=== PATIENT | female | born 1965 | race Caucasian/White ===

== ENCOUNTER → 2016-04-30 | Outpatient (CLI) | payer BC ==
[~2016-04-30] MED LIST: IBUP-1050 PO; MELATAB2 PO; MULT-506 PO; ONDA4TAB46 PO; TEMO1CAP4 PO
--- NOTE | 2016-04-30 14:16 | Discharge Instructions ---
Discharge Instructions Procedure Procedure Date: Apr 30, 2016. Reason for visit: Right Mass. Discharge Discharge Date: Apr 30, 2016. Discharge Diagnosis: status post breast biopsy Instructions Activity Recommendations: Additional Limitations (see below) Return to School/Work: no limitations Recommended Home Diet: No Limitations Provider Instructions: ACTIVITY RECOMMENDATIONS: * No lifting, pushing, pulling or exercising the affected side for three days. RETURN TO SCHOOL/WORK: * You may return to work/school after the procedure, but do not perform any strenuous activities for 24 to 48 hours. MEDICATIONS: * Tylenol (two 325 mg) every four to six hours if needed for mild pain (if not allergic to Tylenol). DIET: * Resume previous diet. SPECIAL CARE INSTRUCTIONS: * Keep biopsy site dry for 24 hours. May shower after 24 hours, but do not soak (bathe) incision. * May remove Tegaderm (plastic patch) tomorrow AFTER showering. * Leave the steri-strips on for one week. Allow the steri-strips to fall off by themselves. If not off after one week, you may remove them. You may place a Bandaid crosswise over the strips, if desired. * Apply ice 10 minutes on and 10 minutes off as needed. * Wear a bra at bedtime to sleep more comfortably for 2-3 days. * Your referring physician should have the results after approximately 5 to 7 business days. * Call for unusual bleeding, fever, drainage, etc or if you have any questions call during normal business hours or after hours call Dr Reyes, . FOLLOW UP VISIT: Follow-up with Referring Physician as scheduled. Allergies Coded Allergies: No Known Allergies (Unverified , 07/22/15) Ham Tubbs Recommendations: Call your doctor if: * Temperature above 101 degrees * Pain not relieved by pain medicine ordered * There is increased drainage or redness from any incision * You have any unanswered questions or concerns. Your Doctors Instructions noted above were prepared by provider Priya Reyes. Patient Signature Section: Patient Instructions Signature Page Shavonne George Patient (or Guardian) Signature/Date: I have read and understand the instructions given to me by my caregivers. Caregiver/RN/Doctor Signature/Date: The above-named patient and/or guardian has received patient instructions on this date. + Original Patient Signature Page (only) stays with chart. Please make copy for patient.
--- NOTE | 2016-04-30 15:46 | MAMMOGRAPHY REPORT ---
UNILATERAL RIGHT DIGITAL DIAGNOSTIC MAMMOGRAM: 04/30/2016 CLINICAL HISTORY: Status post ultrasound-guided biopsy of the right 3:00 breast mass. TECHNIQUE: Postprocedural right CC and ML views were obtained. COMPARISON: Comparison is made to exams dated: 04/25/2016 mammogram, 10/19/2015 ultrasound, 05/30/2015 mammogram - [facility], and 08/01/2013 mammogram. BREAST COMPOSITION: The tissue of the right breast is heterogeneously dense, which may obscure smal l masses. FINDINGS: A new biopsy marker clip is seen at the site of the biopsied mass in the right 3:00 breas t. No significant postbiopsy hematoma is seen. IMPRESSION: POST PROCEDURE IMAGING FOR MARKER PLACEMENT New biopsy marker clip status post ultrasound guided biopsy of the right 3:00 breast mass. Patholog y results are pending. Approximately 10% of breast cancers are not detected with mammography. A negative mammographic repor t should not delay biopsy if a clinically suggestive mass is present. Priya Reyes M.D. ah/:04/30/2016 14:25:25 Records Management Engineer: Jodie Beth, [facility] BI-RADS Code: Post Procedure Imaging For Marker Placement
--- NOTE | 2016-04-30 15:46 | MAMMOGRAPHY REPORT ---
ULTRASOUND GUIDED BIOPSY RIGHT BREAST: 04/30/2016 CLINICAL HISTORY: Right 3:00 breast mass. PATIENT CONSENT: The procedure, risks and benefits were discussed with the patient and informed writ ten consent was obtained. A timeout was performed immediately prior to the procedure. PROCEDURE DESCRIPTION: With ultrasound guidance, aseptic technique, and lidocaine as the local anest hetic (1% lidocaine to anesthetize the skin and 1% lidocaine with epinephrine to anesthetize the hernan per tissues), the mass of concern in the right 3:00 breast was sampled 3 times with a 14-gauge Achie ve biopsy needle. Immediately thereafter, with ultrasound guidance, aseptic technique, and lidocai ne as the local anesthetic, a metallic localizer clip was placed at the biopsy site. Direct pressur e was applied to the site immediately post procedure and hemostasis was achieved. Postprocedure uni lateral mammograms were performed to confirm placement of the clip in the expected location of the b reast mass. The patient tolerated the procedure without complication. She was given wound care ins tructions. The specimens were sent to pathology for analysis. COMPARISON: Comparison is made to exams dated: 04/25/2016 ultrasound, 04/25/2016 mammogram, 10/19/19 16 ultrasound, 10/19/2015 mammogram, 05/30/2015 mammogram - [facility], and 08/01/2013 mammogram. IMPRESSION: ULTRASOUND GUIDED BIOPSY Ultrasound-guided core needle biopsy of the right 3 o'clock breast mass, with clip placement. The p atient will receive pathology results from her referring physician. Priya Reyes M.D. ah/:04/30/2016 14:18:57 Science Manager: Jodie Beth, [facility]
== END | disposition home or self-care (01) ==
LOC: C.MAMM 13:36
PROVIDERS: ATTEND Obstetrics & Gynecology
DX: N63 Unspecified lump in breast (principal); N60.11 Diffuse cystic mastopathy of right breast

== ENCOUNTER → 2016-05-15 | Outpatient (CLI) | payer BC ==
[2016-05-15 13:50] VITALS: BP 102/66; PULSE 72; TEMP 36.7; O2SAT 100
--- NOTE | 2016-05-15 15:12 | Radiation Oncology Follow-Up ---
Radiation Oncology Follow-Up Date of Visit May 15, 2016. (Es Momin PA-C) Reason For Visit 6 month follow-up (Es Momin PA-C) Radiation Completion Date 10/09/15 (Es Momin PA-C) Diagnosis (1) Glioblastoma Status: Resolved Onset Date: 07/31/2015 Location: right temporal lobe Histology Subtype: GBM Stage: IV Permanent Comment: DIAGNOSIS: Brain, right temporal lobe, glioblastoma, WHO Grade IV TREATMENT: 1. Craniotomy - gross total resection - 07/31/2015 2. Status post completion of radiation therapy 10/09/2015 received 6000 cGy radiation combined with Temodar. 3. Maintenance Temodar 4. TTS-Novocure 18 hours per day Last Edited By: Es Momin on May 15, 2016 15:05 (Es Momin PA-C) History of Present Illness Ms. George is a 50-year-old female who recently presented with neurologic changes including short-term memory loss, confusion and difficulty typing. She also noted that she was favoring her left side of her body and she was also highly emotional. Additionally, she was also having some frontal headaches. She did have an MRI of the brain ordered by her primary care physician on 2015 which did show a 6 cm mass in the right temporal lobe. The mass was ring- enhancing with a cystic lesion and there was significant vasogenic edema with a right to left midline shift. She did also have an MRA of the brain which was negative. She was then transferred to [facility] for further care. She was seen by Dr. Gomez who recommended a right frontotemporal craniotomy for resection of the tumor. The patient underwent craniotomy on 07/31/2015 and successfully underwent a gross total resection as per the operative note. The pathology revealed a glioblastoma, WHO grade 4. The patient did have a postoperative MRI of the brain which was completed on 08/2015 which revealed a decrease in the size of the tumor now measuring 4.8 cm with no masslike enhancement. The patient has been seen by Dr. Hayden as well was discussed the role of concurrent chemotherapy and radiation therapy in the adjuvant setting. We are now seeing the patient in consultation to discuss the role of radiation therapy. She underwent radiation therapy with IMRT which was completed on 10/09/2015. She received 6000 cGy. Radiation was given concomitantly with Temodar. (Es Momin PA-C) Interim History She's been doing well over the past 6 months. She has not developed any new neurologic symptoms. She was recently seen by Dr. Hayden 05/05/2016 at [facility]. She had an MRI evaluation prior to that visit. 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 When this occurs she takes acyclovir. She does need a refill and will call Dr. Hayden for refill of the medication. We're pleased with the outcome of the recheck MRI. There's no signs of recurrence. She is now being treated with Novocure. They did state that if the transducers are placed near the area of surgery this will cause warmth of the head. She denies discomfort with this therapy. (Es Momin PA-C) Allergies Coded Allergies: No Known Allergies (Unverified , 07/22/15) Home Medications Scheduled Melatonin (Melatonin Maximum Strengt), 3 MG PO HS Multivitamin (Multivitamin), 1 TAB PO DAILY Temozolomide (Temodar), 240 MG PO DAILY Scheduled PRN Ibuprofen (Advil), 200 MG PO Q4 PRN for Pain Ondansetron Hcl (Zofran), 4 MG PO Q6H PRN for Nausea Review of Systems Gastrointestinal: Symptoms: WNL GI Comments: Occ constipation Oral: Symptoms: No Problems Respiratory: Symptoms: WNL Urinary: Symptoms: WNL Skin: Symptoms: No Problems Other Skin Symptoms: Admits to itchiness over skin of scalp/forehead; (Es Momin PA-C) Physical Exam Vital Signs Date Time Temp Pulse Resp B/P Pulse Ox O2 Delivery O2 Flow Rate FiO2 05/15/16 13:50 36.7 72 16 102/66 100 Fatigue: None General Appearance: no apparent distress Eyes: PERRL, EOMI, + pertinent finding (injected conjunctiva) ENT: normal ENT inspection Neck: no adenopathy, thyroid normal Respiratory/Chest: lungs clear, no respiratory distress, no accessory muscle use Cardiovascular: regular rate, rhythm, no gallop, no murmur Extremities: no pedal edema Neurologic/Psychiatric: pediatric acute care unit nurse II-XII nml as tested, no motor/sensory deficits, alert, normal mood/affect Skin: warm/dry Lymphatic: no adenopathy (Es Momin PA-C) Laboratory Studies Test 03/03/16 08:32 03/03/16 08:38 04/01/16 10:48 04/01/16 10:49 Thyroid Stimulating Hormone (TSH) 2.310 uIu/ml (0.300-4.500) 1.480 uIu/ml (0.300-4.500) Miscellaneous Test REPORT REPORT White Blood Count 3.95 K/uL (4.8-10.8) Red Blood Count 3.95 M/uL (4.2-5.4) Hemoglobin 12.7 g/dL (12.0-16.0) Hematocrit 37.0 % (37-47) Mean Corpuscular Volume 93.7 fL (80-100) Mean Corpuscular Hemoglobin 32.2 pg (25-34) Mean Corpuscular Hemoglobin Concent 34.3 g/dl (32-36) Platelet Count 145 K/uL (130-400) Mean Platelet Volume 10.1 fL (7.4-10.4) Neutrophils (%) (Auto) 66.6 % Lymphocytes (%) (Auto) 21.0 % Monocytes (%) (Auto) 10.1 % Eosinophils (%) (Auto) 1.5 % Basophils (%) (Auto) 0.5 % Neutrophils # (Auto) 2.63 K/uL (1.4-6.5) Lymphocytes # (Auto) 0.83 K/uL (1.2-3.4) Monocytes # (Auto) 0.40 K/uL (0.11-0.59) Eosinophils # (Auto) 0.06 K/uL (0-0.5) Basophils # (Auto) 0.02 K/uL (0-0.2) RDW Standard Deviation 44.6 fL (36.4-46.3) RDW Coefficient of Variation 13.0 % (11.5-14.5) Immature Granulocyte % (Auto) 0.3 % Immature Granulocyte # (Auto) 0.01 K/uL (0.00-0.02) Prothrombin Time 10.6 SECONDS (9.0-12.0) Prothrombin Time INR 1.0 (0.9-1.1) PTT 28.4 SECONDS (21.0-31.0) Partial Thromboplastin Ratio 1.1 Estimated Average Glucose 97 mg/dl Hemoglobin A1c 5.0 % (4.5-5.6) Triglycerides Level 63 mg/dl (0-150) Cholesterol Level 176 mg/dl (0-200) HDL Cholesterol 90 mg/dl LDL Cholesterol, Calculated 73 mg/dl VLDL Cholesterol, Calculated 13 mg/dl Cholesterol/HDL Ratio 2.0 Homocysteine 8.4 UMOL/L (<10.4) Free Thyroxine 1.36 ng/dl (0.80-1.60) Prolactin 6.35 ng/mL Human Growth Hormone 0.2 ng/mL (<=7.1) Insulin-like Growth Factor I 160 ng/mL (50-317) Insulin-like GF I Z-Score (Male) (()) Insulin-like GF I Z-Score (Female) 0.3 SD (-2.0 - +2.0) Test 05/05/16 08:18 White Blood Count 3.85 K/uL (4.8-10.8) Red Blood Count 4.15 M/uL (4.2-5.4) Hemoglobin 13.5 g/dL (12.0-16.0) Hematocrit 38.8 % (37-47) Mean Corpuscular Volume 93.5 fL (80-100) Mean Corpuscular Hemoglobin 32.5 pg (25-34) Mean Corpuscular Hemoglobin Concent 34.8 g/dl (32-36) Platelet Count 160 K/uL (130-400) Mean Platelet Volume 10.0 fL (7.4-10.4) Neutrophils (%) (Auto) 60.5 % Lymphocytes (%) (Auto) 27.8 % Monocytes (%) (Auto) 9.1 % Eosinophils (%) (Auto) 2.1 % Basophils (%) (Auto) 0.5 % Neutrophils # (Auto) 2.33 K/uL (1.4-6.5) Lymphocytes # (Auto) 1.07 K/uL (1.2-3.4) Monocytes # (Auto) 0.35 K/uL (0.11-0.59) Eosinophils # (Auto) 0.08 K/uL (0-0.5) Basophils # (Auto) 0.02 K/uL (0-0.2) RDW Standard Deviation 44.1 fL (36.4-46.3) RDW Coefficient of Variation 12.9 % (11.5-14.5) Immature Granulocyte % (Auto) 0.0 % Immature Granulocyte # (Auto) 0.00 K/uL (0.00-0.02) Prothrombin Time 10.4 SECONDS (9.0-12.0) Prothrombin Time INR 1.0 (0.9-1.1) PTT 29.0 SECONDS (21.0-31.0) Partial Thromboplastin Ratio 1.1 Estimated Average Glucose 100 mg/dl Hemoglobin A1c 5.1 % (4.5-5.6) Triglycerides Level 60 mg/dl (0-150) Cholesterol Level 205 mg/dl (0-200) HDL Cholesterol 80 mg/dl LDL Cholesterol, Calculated 113 mg/dl VLDL Cholesterol, Calculated 12 mg/dl Cholesterol/HDL Ratio 2.6 Apolipoprotein A-1 189 mg/dL (101-198) Apolipoprotein B 80 mg/dL (49-103) Apolipoprotein B/A-1 Ratio 0.42 Homocysteine 10.7 UMOL/L (<10.4) Free Thyroxine 1.28 ng/dl (0.80-1.60) Prolactin 7.80 ng/mL Human Growth Hormone 2.5 ng/mL (<=7.1) Insulin-like Growth Factor I 199 ng/mL (50-317) Insulin-like GF I Z-Score (Male) (()) Insulin-like GF I Z-Score (Female) 0.8 SD (-2.0 - +2.0) (Es Momin PA-C) Additional Studies She had an MRI of the brain 05/06/2016. This showed stable postsurgical changes of resection of the right anterior temporal lobe was stable FLAIR hyperintensity in the right anterior temporal lobe area around the surgical cavity. Curvilinear enhancement along the anterior margin of the surgical cavity, unchanged. (Es Momin PA-C) Assessment & Plan Plan: The patient is also seen and examined by Dr. Reyes. She continues on the maintenance Temodar. She is continuing on the TTS therapy. Continue regular follow-up with Dr. Hayden with recheck MRIs. We asked her to return to our office in 1 year. She may call our office she has any questions or concerns in the interim. She is going to call Dr. Hayden for refill on her acyclovir. (Es Momin PA-C) I agree with note created by Es Momin PA-C. I reviewed the patient's chart and information with her. I have examined and evaluated the patient. I reviewed relevant clinical information and answered the patient's and/or family' s questions. (Veeral. Reyes MD) Total Time In Follow-Up I spent 20 minutes speaking to the patient performing examination. I spent 15 minutes reviewing information in completing this note. (Es Momin PA-C) I spent 15 minutes examining and counseling the patient. (Veeral. Reyes MD) Copy To Corky Hayden M.D.; Nabil Torres M.D.; David Gomez MD
== END | disposition home or self-care (01) ==
LOC: C.ONC 13:39
PROVIDERS: ATTEND Radiology Radiation Oncology
DX: Z08 Encounter for follow-up examination after completed treatment for malignant neoplasm (principal); Z92.3 Personal history of irradiation; Z85.841 Personal history of malignant neoplasm of brain

== ENCOUNTER → 2016-06-02 | Outpatient (CLI) | payer BC ==
--- NOTE | 2016-06-02 16:44 | MAMMOGRAPHY REPORT ---
BILATERAL DIGITAL SCREENING MAMMOGRAM TOMOSYNTHESIS WITH CAD: 06/02/2016 CLINICAL HISTORY: Routine screening. Patient has no complaints. TECHNIQUE: Breast tomosynthesis in addition to standard 2D mammography was performed. Current study was also evaluated with a Computer Aided Detection (CAD) system. COMPARISON: Comparison is made to exams dated: 04/25/2016 mammogram, 05/30/2015 mammogram - [facility], and 08/01/2013 mammogram. BREAST COMPOSITION: The tissue of both breasts is heterogeneously dense, which may obscure small ma sses. FINDINGS: There is a stable ribbon shaped metallic biopsy marker in the 3:00 right breast. Diffuse bilateral microcalcifications. The parenchymal pattern is similar to prior exams. No new suspicio us mass, architectural distortion or cluster of microcalcifications is seen. IMPRESSION: ACR BI-RADS CATEGORY 1: NEGATIVE There is no mammographic evidence of malignancy. A 1 year screening mammogram is recommended. The p atient will receive written notification of the results. Approximately 10% of breast cancers are not detected with mammography. A negative mammographic repor t should not delay biopsy if a clinically suggestive mass is present. Yolanda Mckinley M.D. ay/:06/02/2016 16:09:31 Water Reclamation Systems Operator: Ninoska CARCAMO([place])(Linda), [facility] letter sent: Normal 1/2 BI-RADS Code: ACR BI-RADS Category 1: Negative
== END | disposition home or self-care (01) ==
LOC: C.MAMM 08:35
PROVIDERS: ATTEND Obstetrics & Gynecology
DX: Z12.31 Encounter for screening mammogram for malignant neoplasm of breast (principal)

== ENCOUNTER → 2016-06-05 | Outpatient (CLI) | payer BC ==
[2016-06-07 11:31] LABS: LSP % CELLS ANALYZED CD4 33 % (30-61); LSP ABSOLUTE CT CD4 226 cells/uL (490-1740); LSP LYMPHOCYTES ABSOLUTE 688 cells/uL (850-3900)
== END | disposition home or self-care (01) ==
LOC: C.LAB 11:08
PROVIDERS: ATTEND Neurological Surgery
DX: Z51.11 Encounter for antineoplastic chemotherapy (principal); C71.2 Malignant neoplasm of temporal lobe; R41.3 Other amnesia; R53.83 Other fatigue

== ENCOUNTER → 2016-12-31 | Outpatient (CLI) | payer BC ==
[2016-12-31 09:33] LABS: BASO ABS # 0.03 K/uL (0-0.2); COMPLETE YES; EOS % 2.2 %; HEMATOCRIT 40.3 % (37-47); LYMPH ABS # 0.91 K/uL (1.2-3.4); MEAN CELL VOLUME 94.4 fL (80-100); MEAN CORPUSCULAR HEMOGLOBIN 31.1 pg (25-34); MEAN PLATELET VOLUME 9.8 fL (7.4-10.4); MONO % 10.5 %; NEUT % 57.3 %; PLATELET COUNT 145 K/uL (130-400); RED BLOOD COUNT 4.27 M/uL (4.2-5.4); WHITE BLOOD COUNT 3.14 K/uL (4.8-10.8)
[2016-12-31 10:03] LABS: ALT/SGPT 33 U/L (12-78); AST/SGOT 13 U/L (15-37); BLOOD UREA NITROGEN 21 mg/dl (7-18); BUN/CREATININE RATIO 29.5 (10-20); CALCIUM 9.4 mg/dl (8.5-10.1); CARBON DIOXIDE 32 mmol/L (21-32); CHLORIDE 106 mmol/L (98-107); CREATININE 0.72 mg/dl (0.60-1.20); GLUCOSE 86 mg/dl (70-99); POTASSIUM 4.6 mmol/L (3.5-5.1); SODIUM 141 mmol/L (136-145)
[2016-12-31 10:18] LABS: ALB/GLOB RATIO 1.2 (0.9-2); ALKALINE PHOSPHATASE 82 U/L (45-117); CHOLESTEROL 194 mg/dl (0-200); CHOLESTEROL/HDL RATIO 1.9; HDL CHOLESTEROL 103 mg/dl; LDL CHOLESTEROL CALCULATED 82 mg/dl; TRIGLYCERIDES 47 mg/dl (0-150); VERY LOW DENSITY LIPOPROT CALC 9 mg/dl
[2017-01-03 02:19] LABS: HUMAN GROWTH HORMONE 6.1 ng/mL (<=7.1); ILGF1 Z SCORE FEMALE 0.1 SD (-2.0 - +2.0); INSULIN LIKE GROWTH FACTOR-I 151 ng/mL (50-317); LSP % CELLS ANALYZED CD4 32 % (30-61); LSP ABSOLUTE CT CD4 294 cells/uL (490-1740); LSP LYMPHOCYTES ABSOLUTE 904 cells/uL (850-3900)
== END | disposition home or self-care (01) ==
LOC: C.LAB 08:44
PROVIDERS: ATTEND Neurological Surgery
DX: C71.1 Malignant neoplasm of frontal lobe (principal); R53.83 Other fatigue; R41.3 Other amnesia; E23.0 Hypopituitarism

== ENCOUNTER → 2017-06-04 | Outpatient (CLI) | payer OTHER ==
--- NOTE | 2017-06-04 14:29 | MAMMOGRAPHY REPORT ---
BILATERAL DIGITAL SCREENING MAMMOGRAM TOMOSYNTHESIS WITH CAD: 06/04/2017 CLINICAL HISTORY: Routine screening. TECHNIQUE: Breast tomosynthesis in addition to standard 2D mammography was performed. Current study was also evaluated with a Computer Aided Detection (CAD) system. COMPARISON: Comparison is made to exams dated: 06/02/2016 mammogram, 04/25/2016 mammogram, 05/30/2015 ma mmogram - [facility], 08/01/2013 mammogram, 10/14/2011 mammogram, and 10/19/2015 mammog naga - [facility]. BREAST COMPOSITION: The tissue of both breasts is heterogeneously dense, which may obscure small mas ses. FINDINGS: No suspicious masses, calcifications, or areas of architectural distortion are noted in ei ther breast. There has been no significant interval change compared to prior exams. Scattered bilater al benign-appearing calcifications are not significantly changed. A biopsy marker clip is again note d within the right 3:00 breast. A linear scar marker denotes a scar on the right lateral breast. IMPRESSION: ACR BI-RADS CATEGORY 2: BENIGN There is no mammographic evidence of malignancy. A 1 year screening mammogram is recommended. The pa tient will receive written notification of the results. Approximately 10% of breast cancers are not detected with mammography. A negative mammographic report should not delay biopsy if a clinically suggestive mass is present. Priya Reyes M.D. ah/:06/04/2017 12:26:03 Wire Splicer: Kolby CARCAMO([place])(M), [facility] letter sent: Normal 1/2 BI-RADS Code: ACR BI-RADS Category 2: Benign
== END | disposition home or self-care (01) ==
LOC: C.MAMM 10:39
PROVIDERS: ATTEND Obstetrics & Gynecology
DX: Z12.31 Encounter for screening mammogram for malignant neoplasm of breast (principal)

== ENCOUNTER → 2017-06-10 | Outpatient (CLI) | payer OTHER ==
[2017-06-10 13:27] LABS: LUTEINIZING HORMONE 37.05 IU/L
== END | disposition home or self-care (01) ==
LOC: C.LAB 10:13
PROVIDERS: ATTEND Neurological Surgery
DX: C71.2 Malignant neoplasm of temporal lobe (principal); R41.3 Other amnesia